=== PATIENT | female | born 1985 | race Caucasian/White ===

== ENCOUNTER 2017-11-30 06:20 | Inpatient (IN) | payer BC, SELFPAY ==
[2017-11-30] MEDS: Lactated Ringers 1,000 ML 50 ML IV ×4 (07:15→20:09)
[2017-11-30] MEDS: Betamethasone/Betamethasone 30 MG/5 ML Vial 12 MG IM (07:33)
[2017-11-30 07:45] VITALS: BMI 34.9
[2017-11-30 07:59] LABS: Hematocrit 36.6 % (37-47); Hemoglobin 12.2 g/dl (12.0-15.0); Mean Corp Hgb Conc 33.3 g/gl (32-36); Mean Corpuscular Hgb 29.1 pg (27.0-32.0); Mean Corpuscular Volume 87.4 fL (81-99); Mean Platelet Vol. 9.8 fl (6.2-12.0); Platelet Count 239 K/mm3 (150-450); RBC Distribution Width CV 13.8 % (11.6-14.6); Red Blood Count 4.19 M/mm3 (4.2-5.4); White Blood Count 12.4 K/mm3 (4.4-11.0)
[2017-11-30 08:01] LABS: Scan Indicated on CBC? Y/N NO
--- NOTE | 2017-11-30 08:48 | PCM.HP.OB ---
- Problem List (1) 36 to 37 weeks gestation of Status: Acute (2) Spontaneous rupture of membranes Status: Acute History Date of Admission: 11/30/17 Final LUZ: 12/22/17 Gestational age: 36 Weeks and 6 Days History of this : 32 yo female at 36 6/7 wk with care in [place], [place]. Presents for evaluation due to SROM this am. Clear fluid and continuing to leak. records requested from provider in [place] but not received yet. Annika in [facility] for a family event. Allergies No Known Allergies Allergy (Unverified 11/30/17 07:36) Current Medications Acetaminophen (Tylenol) 325 - 650 mg PO Q4H PRN PRN PRN Reason: PAIN OR FEVER >100.4F Al Hydroxide/Mg Hydroxide (Mylanta Ii) 15 - 30 ml PO Q4H PRN PRN PRN Reason: INDIGESTION Citric Acid/Sodium Citrate (Bicitra) 30 ml PO UD PRN Lactated Ringer's () 1,000 mls @ 50 mls/hr IV .Q20H TROY Nalbuphine HCl (Nubain) 5 - 10 mg IV Q3H PRN PRN PRN Reason: PAIN (4-10/10) Ondansetron HCl (Zofran) 4 mg IV Q8H PRN PRN PRN Reason: NAUSEA Promethazine HCl (Phenergan) 6.25 - 12.5 mg IV Q4H PRN PRN; Protocol PRN Reason: IF NAUSEA PERSISTS Sodium Chloride () 5 - 15 ml IV UD TROY Alcohol: None Drug Use: none Number of Fetus(es): 1 Review of Systems Constitutional: Denies: Anorexia, Chills, Fever Eyes: Denies: Blurred vision Gynecological: Denies: Vaginal bleeding - States fluid leaking and feeling mild cramping. Physical Exam General: Alert, Oriented x3, Cooperative, No apparent distress Abdomen: Soft, Gravid Extremities:: No clubbing, No cyanosis, No edema Estimated gestational size: Appropriate for gestational size Presentation: Cephalic Cervix Dilation (cm): 2 Station: -3 Effacement (%): 25 - soft, to maternal L Assessment/Plan Active and Suspected Problems 36 to 37 weeks gestation of (Acute) Spontaneous rupture of membranes (Acute) 36 6/7 wk SROM. Admit for labor and delivery. Pitocin PRN if UCs remain in adequate Betamethasone given d/t under 37 wks records requested from [place] provider. If not received, will collect labwork package. Continue labor.
--- NOTE | 2017-11-30 08:54 | HP.PCM_ITS ---
- Problem List (1) 36 to 37 weeks gestation of Status: Acute (2) Spontaneous rupture of membranes Status: Acute History Date of Admission: 11/30/17 Final LUZ: 12/22/17 Gestational age: 36 Weeks and 6 Days History of this : 32 yo female at 36 6/7 wk with care in [place], [place]. Presents for evaluation due to SROM this am. Clear fluid and continuing to leak. records requested from provider in [place] but not received yet. Annika in [facility] for a family event. Allergies No Known Allergies Allergy (Unverified 11/30/17 07:36) Current Medications Acetaminophen (Tylenol) 325 - 650 mg PO Q4H PRN PRN PRN Reason: PAIN OR FEVER >100.4F Al Hydroxide/Mg Hydroxide (Mylanta Ii) 15 - 30 ml PO Q4H PRN PRN PRN Reason: INDIGESTION Citric Acid/Sodium Citrate (Bicitra) 30 ml PO UD PRN Lactated Ringer's () 1,000 mls @ 50 mls/hr IV .Q20H TROY Nalbuphine HCl (Nubain) 5 - 10 mg IV Q3H PRN PRN PRN Reason: PAIN (4-10/10) Ondansetron HCl (Zofran) 4 mg IV Q8H PRN PRN PRN Reason: NAUSEA Promethazine HCl (Phenergan) 6.25 - 12.5 mg IV Q4H PRN PRN; Protocol PRN Reason: IF NAUSEA PERSISTS Sodium Chloride () 5 - 15 ml IV UD TROY Alcohol: None Drug Use: none Number of Fetus(es): 1 Review of Systems Constitutional: Denies: Anorexia, Chills, Fever Eyes: Denies: Blurred vision Gynecological: Denies: Vaginal bleeding - States fluid leaking and feeling mild cramping. Physical Exam General: Alert, Oriented x3, Cooperative, No apparent distress Abdomen: Soft, Gravid Extremities:: No clubbing, No cyanosis, No edema Estimated gestational size: Appropriate for gestational size Presentation: Cephalic Cervix Dilation (cm): 2 Station: -3 Effacement (%): 25 - soft, to maternal L Assessment/Plan Active and Suspected Problems 36 to 37 weeks gestation of (Acute) Spontaneous rupture of membranes (Acute) 36 6/7 wk SROM. Admit for labor and delivery. Pitocin PRN if UCs remain in adequate Betamethasone given d/t under 37 wks records requested from [place] provider. If not received, will collect labwork package. Continue labor.
[2017-11-30] MEDS: Oxytocin 30 units/NS 500 ml 30 UNITS/500 ML IV.SOLN IV (10:22)
--- NOTE | 2017-11-30 11:18 | PCM.PN.BLA ---
Progress Note LABOR PROGRESS NOTE Off monitor for a while to tub / walk AVSS Pitocin augmentation started EFM 110-120s avg variability. Accels noted UCs irreg CX: 10/06/-3 A/P: 36 6/7 wk SROM Care in [place] . Records receive. GBS NEG Betamethasone given for EGA under 37 wk. Pitocin started. Inc per protocol to adequate UCs Watch progress, tolerance of labor.
--- NOTE | 2017-11-30 11:21 | PN_ITS ---
Progress Note LABOR PROGRESS NOTE Off monitor for a while to tub / walk AVSS Pitocin augmentation started EFM 110-120s avg variability. Accels noted UCs irreg CX: 10/06/-3 A/P: 36 6/7 wk SROM Care in [place] . Records receive. GBS NEG Betamethasone given for EGA under 37 wk. Pitocin started. Inc per protocol to adequate UCs Watch progress, tolerance of labor.
--- NOTE | 2017-11-30 13:09 | PCM.PN.BLA ---
Progress Note LABOR PROGRESS NOTE requested epidural and fluid bolus being given AVSS Pitocin at 4 mIU/min CX: at 12:10 pm EFM : category I tracing. 110-120 with accels to 150s. Avg variability UCs q 2-3 mins A/P: 36 6/7 wk SROM. Pitocin augmentation. Epidural to be placed Continue labor. Anticipate .
[2017-11-30] MEDS: fentaNYL-bupivacaine (epidural) 100 ML BAG EPIDURAL (13:10)
--- NOTE | 2017-11-30 14:20 | PCM.PN.BLA ---
Progress Note LABOR PROGRESS NOTE Strip reviewed. ? prolonged lates vs change of baseline. Epidural placed. Ext monitors on. Likely maternal HR? (80-90s) with sitting up for epidural noted on one segment of tracing. Interrupted return to HR. AVSS IFM placed and IUPC: 110-120s avg variability. Accels. Then epidural placement. FHT in 105-110s with accels noted corresponding to UCs. Category 1 to 2 tracing. but with good variability. Suspect change of baseline 2/2 medications. Pitocin off and UCs q 2-4 min but do not appear adequate by mVUs Position changes prn, Resume pitocin prn to adequate mVUs. IFM overall reassuring variability and accels. A/P: 36 6/7 wk SROM. Continue labor. Watch progress, descent. tolerance of labor.
--- NOTE | 2017-11-30 16:37 | PCM.PN.BLA ---
Progress Note LABOR PROGRESS NOTE Sitting up in bed, high fowlers. comfortable with epidural and moving well. AVSS Pitocin at 4 mIU/min CX: 3/80-90/-2 centered in pelvis and VTX much lower than prior IFM 110-120s avg variability. Accels. UCs q 2-4 mins A/P: 36 6/7 wk SROM. GBS neg. Continue pitocin per protocol. Position changes. Watch progress, descent. tolerance of labor. Anticipate
--- NOTE | 2017-11-30 19:48 | PCM.PN.BLA ---
Progress Note LABOR PROGRESS NOTE Rapid progress from 4 / 100 to 8 cm. Pitocin was at 12 mIU/min IFM: FHT 120-130s with accels good variability. Early decelerations, variables, occsional lates. Then several lates with rapid progress. Category 3 resolved with change of positions, O2 on. Pitocin off, IV fluids bolus. To Hands and knees with peanut ball support. FHR recovered to baseline with small accels UC's q 3 min with pitocin off A/P: 36 6/7 wk rapid progress from 4 to 8 cm. Category 3 briefly, FHR with lates, now recovered with interventions. Continue labor. Watch continued tolerance of labor. Anticipate
--- NOTE | 2017-11-30 19:54 | PN_ITS ---
Progress Note LABOR PROGRESS NOTE Rapid progress from 4 / 100 to 8 cm. Pitocin was at 12 mIU/min IFM: FHT 120-130s with accels good variability. Early decelerations, variables , occsional lates. Then several lates with rapid progress. Category 3 resolved with change of positions, O2 on. Pitocin off, IV fluids bolus. To Hands and knees with peanut ball support. FHR recovered to baseline with small accels UC's q 3 min with pitocin off A/P: 36 6/7 wk rapid progress from 4 to 8 cm. Category 3 briefly, FHR with lates, now recovered with interventions. Continue labor. Watch continued tolerance of labor. Anticipate
--- NOTE | 2017-11-30 22:14 | PCM.PN.BLA ---
Progress Note LABOR PROGRESS NOTE Complete and pushing. +1 station, some caput noted. IFM: 120-130s with accels. Late decelerations, variables with pushing on L side. repositioned to R side and better tolerance, with early decelerations Pitocin off and O2 on for pushing. UCs q 2-3 mins A/P: 36 6/7 wk EGA SROM. Progressed with pitocin to complete. Pitocin up to 12 then off, resumed and up to 8 mIU/min. Now off again for pushing. Continue pushing as fetus tolerates. Consider vacuum extraction prn. Anticipate
[2017-12-01] MEDS: Oxytocin 30 units/NS 500 ml 30 UNITS/500 ML IV.SOLN 334 UNITS IV (00:03)
--- NOTE | 2017-12-01 00:14 | PCM.OB.VAG ---
- Problem List (1) 36 to 37 weeks gestation of Status: Acute (2) Spontaneous rupture of membranes Status: Acute Vaginal Delivery Maternal Presentation: Spontaneous Rupture of Membranes 35 5/7 wk EGA. SROM Method of Induction: Pitocin Amniotic Membrane Rupture Type: Spontaneous at home Amniotic Fluid Description: Clear Final LUZ: 12/23/17 Final LUZ Source: LMP Gestational age: 36 Weeks and 5 Days Date of Procedure: 11/30/17 Pre-Operative Diagnosis: 35 5/7 wk EGA SROM Post-Operative Diagnosis: Same Surgery/ Procedure Performed: Spontaneous Vaginal Delivery Anesthesiologist: Anh Srinivasan Type of Anesthesia: Epidural Description of Procedure: NSVE of a kowalski viable male over intact perineum to laceration. Head delivered ROP followed quickly by the shoulders. No nuchal cord noted. OP and nares bulb suctioned after delivery of shoulders Infant to maternal abdomen. Delayed cord clamp. Cord clamped x two and cut. Infant to RN for check d/t prematurity then back to maternal abdomen for skin to skin. Baby with spont vigorous cry, and good tone. PP exam; Abrasion at L anterior labia, hemostatic. Posterior midline 2nd deg vaginal and perineal laceration. Repaired under epidural to hemostatic and intact with 3-0 vicryl. No other repair required. Placenta delivered by spont expulsion, expression. Normal appearing, intact, with 3 V cord, trailing membranes EBL 200 cc Pt and infant tolerated delivery well. to recovery stable condition Ray Donato counts correct x two. Presentation: ROP Placental Delivery Description: Spontaneous, Expressed Placenta Disposition: [facility] Cord Vessel Description: 3 Vessels Cord Entanglement: None Drain: Esquivel to straight drain Estimated Blood Loss: 200 A gender: Male (1 minute): 8 (5 minute): 9 Episiotomy Description: None Laceration: Midline, Perineal Extension/lac, Vaginal Extension/lac, 2nd degree Medications given after delivery: IV Pitocin Complications: None
--- NOTE | 2017-12-01 00:20 | DCINST_ITS ---
Discharge Diet: No Restrictions Discharge Activity: May Shower, May Take a Tub Bath Return to work on:: 01/13/18 May resume sexual activity in: 4-6 weeks Additional Activity Instructions:: Nothing in the vagina for 4-6 weeks. You may return to work/school in 6 weeks. Additional Instructions: If you experience any of the following, contact your healthcare provider. * Bleeding that soaks a pad every hour for 2 hours * Fever 100.4 or higher * Unrelieved abdominal pain * Problems urinating (including inability to urinate or burning while urinating) . * Visual changes * Severe headache * Flu-like symptoms * Pain or redness in one of both of your breasts * Pain, warmth, tenderness or swelling in your legs, especially the calf area * Frequent nausea and vomiting * Symptoms of depression or anxiety If you experience any of the following, call 911 or go to the nearest Emergency Room. * Chest pain * Problems breathing * Seizure activity * Partial or complete paralysis of a body part, slurred speech, weakness or drooping of the face, or a sudden inability to walk or hold your balance Allergies/Adverse Reactions: Allergies No Known Allergies Allergy (Unverified 11/30/17 07:36) Medications to take at Discharge Calcium Carbonate [Calcium] 500 mg PO DAILY 11/30/17 Cholecalciferol (Vitamin D3) [Vitamin D3] 2,000 unit PO DAILY 11/30/17 Fish Oil/Dha/Epa [Fish Oil 1,200 mg Fish Oil] 1 each PO DAILY 11/30/17 Vits [Prenatabs FA] 1 tablet PO DAILY 11/30/17 Valacyclovir HCl [Valtrex] 500 mg PO DAILY 11/30/17 Orders to be completed after discharge: Electric breast pump Location: None Selected Please Follow Up With: When: Call to make an appointment with your doctor in 6 weeks. Primary Care Physician: Care Physician,No Primary [Primary Care Provider] - Proposed Discharge Date: 12/03/17
[2017-12-01] MEDS: Oxytocin 30 units/NS 500 ml 30 UNITS/500 ML IV.SOLN 167 UNITS IV (00:33)
[2017-12-01 02:00] VITALS: BP 115/59; PULSE 107; RESP 16; TEMP 37.2; O2SAT 99
--- NOTE | 2017-12-01 02:20 | NURSING ---
epidural catheter removed, blue tip intact
[2017-12-01 03:45] VITALS: BP 109/57; PULSE 104; RESP 16; TEMP 36.7
[2017-12-01] MEDS: Ibuprofen 600 MG Tablet PO ×2 (05:32→11:42)
--- NOTE | 2017-12-01 07:16 | PCM.PN.OB ---
Patient Problems: Active and Suspected Problems 36 to 37 weeks gestation of (Acute) Spontaneous rupture of membranes (Acute) Subjective: PPD# 0 to 1 In the shower. - Physical Exam Vital Signs Temp Pulse Resp BP Pulse Ox 98.1 F 104 H 16 109/57 L 99 12/01/17 03:45 12/01/17 03:45 12/01/17 03:45 12/01/17 03:45 12/01/17 02:00 Oxygen Delivery Method Room Air Weight: 86.6 kg Body Mass Index (BMI) 34.9 Intake and Output for Last 24 Hours 11/29/17 11/30/17 12/01/17 23:59 23:59 23:59 Intake Total 4763 / 4763 1863 / 1863 Output Total 2225 / 2225 1350 / 1350 Balance 2538 / 2538 513 / 513 Laboratory Tests Past 24 Hrs 11/30/17 11/30/17 07:15 07:15 WBC 12.4 H RBC 4.19 L Hgb 12.2 Hct 36.6 L MCV 87.4 MCH 29.1 MCHC 33.3 RDW 13.8 RDW Differential 43.0 Plt Count 239 MPV 9.8 Blood Type A POSITIVE Antibody Screen NEGATIVE Medical Necessity - Tobacco Use Smoking Status: Former smoker Assessment/Plan Active and Suspected Problems 36 to 37 weeks gestation of (Acute) Spontaneous rupture of membranes (Acute) PPD# 0 to 1 Stable per nursing notes and vitals. Continue care.
[2017-12-01 07:55] VITALS: BP 104/60; PULSE 80; RESP 20; TEMP 37.2
[2017-12-01] MEDS: Acetaminophen 500 MG Tablet 1000 MG PO ×2 (08:15→16:37)
[2017-12-01] MEDS: Prenatal Vits Tablet 1 TABLET PO (11:42)
[2017-12-01] MEDS: Calcium Carbonate 500 MG Tablet PO (11:43)
[2017-12-01 12:30] VITALS: BP 97/70; PULSE 100; RESP 18; TEMP 37.3
--- NOTE | 2017-12-01 13:30 | PCM.PN.OB ---
Patient Problems: Active and Suspected Problems 36 to 37 weeks gestation of (Acute) Spontaneous rupture of membranes (Acute) Subjective: PPD0 to 1 Doing OK. , but baby in SCN 2/2 respirations. 36 5/7 wk Some cramping, but not severe. Taking ibuprofen prn for this Relates family only 10 min away so may go there prn if baby needs to stay longer - Physical Exam General: Alert, Oriented x3, Cooperative, No apparent distress HEENT: Atraumatic Neck: Supple Abdomen: Soft - Fundus firm NT at 1-2 cm inferior to umbilcus Neurological: Cranial nerves II-XII grossly intact Psych/Mental Status: Normal Affect Vital Signs Temp Pulse Resp BP Pulse Ox 98.1 F 104 H 16 109/57 L 99 12/01/17 03:45 12/01/17 03:45 12/01/17 03:45 12/01/17 03:45 12/01/17 02:00 Oxygen Delivery Method Room Air Weight: 86.6 kg Body Mass Index (BMI) 34.9 Intake and Output for Last 24 Hours 11/29/17 11/30/17 12/01/17 23:59 23:59 23:59 Intake Total 4763 / 4763 1863 / 1863 Output Total 2225 / 2225 1350 / 1350 Balance 2538 / 2538 513 / 513 Medical Necessity - Tobacco Use Smoking Status: Former smoker Assessment/Plan Active and Suspected Problems 36 to 37 weeks gestation of (Acute) Spontaneous rupture of membranes (Acute) PPD# 0 to 1 delivered just prior to [place] last night Stable pp. baby in SCN d/t issues of prematurity, respirations. Continue routine care. Covered option for hotel status if baby needs to stay longer than 2 d after delivery.
[2017-12-01 18:15] VITALS: BP 103/70; PULSE 90; RESP 20; TEMP 36.4
[2017-12-01 19:50] VITALS: BP 93/47; PULSE 62; RESP 18; TEMP 36.6; O2SAT 98
[2017-12-02 00:05] VITALS: BP 111/62; PULSE 80; RESP 24; TEMP 36.6
[2017-12-02] MEDS: Ibuprofen 600 MG Tablet PO (00:15)
[2017-12-02 04:30] VITALS: BP 89/45; PULSE 84; RESP 18; TEMP 36.3
--- NOTE | 2017-12-02 07:37 | PCM.PN.OB ---
Patient Problems: Active and Suspected Problems 36 to 37 weeks gestation of (Acute) Spontaneous rupture of membranes (Acute) Subjective: PPD#1 to 2 resting . states cramping only with nursing. No concerns voiced. Pain control adequate. Baby remains in SCN due to issues of prematurity but breathing improved per pt. - Physical Exam General: Alert, Oriented x3, Cooperative, No apparent distress HEENT: Atraumatic Neck: Supple Abdomen: Soft - Fundus firm NT at approx 1-2 cm inferior to umbilicus Psych/Mental Status: Normal Affect Vital Signs Temp Pulse Resp BP Pulse Ox 97.3 F L 84 18 89/45 L 98 12/02/17 04:30 12/02/17 04:30 12/02/17 04:30 12/02/17 04:30 12/01/17 19:50 Oxygen Delivery Method Room Air Weight: 86.6 kg Body Mass Index (BMI) 34.9 Intake and Output for Last 24 Hours 11/30/17 12/01/17 12/02/17 23:59 23:59 23:59 Intake Total 4763 / 4763 1863 / 1863 900 / 900 Output Total 2225 / 2225 2250 / 2250 Balance 2538 / 2538 -387 / -387 900 / 900 Medical Necessity - Tobacco Use Smoking Status: Former smoker Assessment/Plan Active and Suspected Problems 36 to 37 weeks gestation of (Acute) Spontaneous rupture of membranes (Acute) PPD# 1 to 2 delivered just prior to [place] Sat night Stable pp. baby remains in SCN d/t issues of prematurity, respirations. Pt states breathing has improved. Continue routine care. Covered option for hotel status if baby needs to stay longer than 2 d after delivery.
[2017-12-02] MEDS: Prenatal Vits Tablet 1 TABLET PO (09:35)
[2017-12-02] MEDS: Calcium Carbonate 500 MG Tablet PO (09:36)
[2017-12-02] MEDS: Senna/Docusate Sodium 1 Tablet PO (09:36)
[2017-12-02 09:57] VITALS: BP 125/80; PULSE 82; RESP 16; TEMP 36.6
[2017-12-02 15:14] VITALS: BP 113/67; PULSE 98; RESP 18; TEMP 36.2; O2SAT 98
== END 2017-12-02 17:30 | disposition home or self-care (01) | DRG 774 ==
PROVIDERS: Admitting Provider Obstetrics & Gynecology; Visit Provider Obstetrics & Gynecology
DX: O60.14X0 Preterm labor third trimester with preterm delivery third trimester, not applicable or unspecified (principal); O70.1 Second degree perineal laceration during delivery; O98.32 Other infections with a predominantly sexual mode of transmission complicating childbirth; A60.00 Herpesviral infection of urogenital system, unspecified; O76 Abnormality in fetal heart rate and rhythm complicating labor and delivery; Z87.891 Personal history of nicotine dependence; Z3A.36 36 weeks gestation of pregnancy; Z37.0 Single live birth
CPT/HCPCS: 59025; 59050; 85027; 86850; 86900; 99218; J7120; G0378; J0702